=== PATIENT | male | born 1995 | race Caucasian/White ===

== ENCOUNTER 2018-10-23 10:33 | Emergency (ER) | payer SELFPAY ==
[2018-10-23] MEDS ORDERED: PENICILLIN V POTASSIUM 500 MG TABLET PO ONE (11:49)
[2018-10-23 11:53] VITALS: BP 130/74
--- NOTE | 2018-10-23 11:55 | ER Document Report ---
HPI - HPI Patient complains to provider of: Dental pain Time Seen by Provider: 10/23/18 11:40 Onset: Other - 2 days Onset/Duration: Persistent Quality of pain: Achy, Pressure, Throbbing Severity: Severe Pain Level: 4 Context: This 23-year-old male presents emergency department with complaints of dental pain on his upper side. Reports he has had problems with his teeth in the past. Went to a dentist to cost $200 upfront so he could not see him. Reports pain when he eats or pain when he bends over. Also complains of pain with hot or col d. Denies fever vomiting diarrhea. Associated Symptoms: None Exacerbated by: Food, Other - hot/cold Relieved by: Denies Similar symptoms previously: No Recently seen / treated by doctor: No Past Medical History - General Information source: Patient - Social History Smoking Status: Unknown if Ever Smoked Cigarette use (# per day): No - chew Frequency of alcohol use: None Drug Abuse: None Occupation: [employer] with: Family Family History: None, Reviewed & Not Pertinent Patient has suicidal ideation: No Patient has homicidal ideation: No - Medical History Medical History: Negative - denies Surgical Hx: Negative Vertical Provider Document - CONSTITUTIONAL Agree With Documented VS: Yes Exam Limitations: No Limitations General Appearance: WD/WN, No Apparent Distress - HEENT HEENT: Atraumatic, Normocephalic. negative: Pharyngeal Erythema Mouth Diagram: 1 - Patient reports dental pain. No erythema no swelling no pustule opens mouth wide good airway no trismus no Gabo - NECK Neck: Normal Inspection, Supple. negative: Lymphadenopathy-Left, Lymphadenopathy-Right - RESPIRATORY Respiratory: Breath Sounds Normal, No Respiratory Distress - CARDIOVASCULAR Cardiovascular: Regular Rate, Regular Rhythm - GI/ABDOMEN Gastrointestinal: Abdomen Soft, Abdomen Non-Tender - MUSCULOSKELETAL/EXTREMETIES Musculoskeletal/Extremeties: MAEW, FROM, Non-Tender - NEURO Level of Consciousness: Awake, Alert, Appropriate Motor/Sensory: No Motor Deficit - DERM Integumentary: Warm, Dry Course - Re-evaluation Re-evalutation: 10/23/18 11:55 This 23-year-old male presents emergency department with complaints of right upper dental pain. Reports he has had problems with his teeth in the past. Reports pain when he bends over pain with food pain when he has hot or cold items. Reports cough he really hurts his tooth. Denies fever vomiting diarrhea. Does not have dental insurance. Reports he tried to see a dentist in the past but they wanted $200 and he could not afford it.Patient is talking in clear voice no trismus opens mouth wide. Patient was instructed on the [facility], was also given written information for other dentist. Patient was instructed on penicillin Motrin for the pain. He was instructed that this would not fix his dental problem that he had to follow-up with a dentist to take care of it. He verbalized understanding to all instructions. Dictation of this chart was performed using voice recognition software; therefore, there may be some unintended grammatical errors. - Vital Signs Vital signs: Temp Pulse Resp BP Pulse Ox 98.0 F 66 16 130/70 H 98 10/23/18 10:39 10/23/18 10:39 10/23/18 10:39 10/23/18 10:39 10/23/18 10:39 Discharge - Discharge Clinical Impression: Pain, dental Condition: Stable Disposition: HOME, SELF-CARE Instructions: [facility], Penicillin V K ([facility]), Toothache ([facility]), Ibuprofen (General) ([facility]), Dentist Additional Instructions: *You have been evaluated for dental pain *Take medications as prescribed *Follow up with dentist within one week *Return to ED for worsening condition, changes, needs Prescriptions: Ibuprofen [Motrin 800 mg Tablet] 800 mg PO TID #15 tablet Penicillin V Potassium [Penicillin Vk 500 mg Tablet] 500 mg PO BID #20 tablet Forms: Elevated Blood Pressure, Return to Work
== END 2018-10-23 11:59 | disposition home or self-care (01) ==
LOC: ER 10:33
DX: K08.89 Other specified disorders of teeth and supporting structures (principal)
CPT/HCPCS: 99282